=== PATIENT | female | born 2005 | race Caucasian/White ===

== ENCOUNTER 2025-08-12 07:30 | Outpatient (REF) | payer BC, SELFPAY ==
--- OUTSIDE RECORDS SUMMARY | 2025-08-12 07:33 | XMS_ITS | Encounter Summary ---
Author Organization [facility] Address [address] [place] [address] Phone Care Team Providers Care Cell Changer Name Role Phone Yani Bernabe MD Primary Care Provider [phone] Jody Draper MD Unavailable [phone] Yani Bernabe MD Unavailable [phone] Encounter Details Date Type Department Care Team (Late st Contact Info) Description 11/21/2024 Telephone [facility] Medicine [address] [place] [address] Yani Bernabe MD [address] [facility], [address] [place], [place] [id number] [email or web address] Social History Tobacco Use Types Packs/Day Years Used Date Smoking Tobacco: Never Smokeless Tobacco: Never Alcohol Use Standard Drinks/Week Comments Never 0 (1 standard drink = 0.6 oz pur e alcohol) Child or Family Care Answer Date Record ed Do you have problems with on e of the following making it difficult for you to work, study, or receive health care? No 02/21/2024 Education Answer Date Recorded Are you interested in more education? Not on sunita e 02/21/2024 Are you concerned about your learning, performance, or behavior in school? No 02/21/2024 No 02/21/2024 Yes 02/21/2024 Food Answer Date Recorded Within the past 6 months we worried whether our food would run out before we got money to buy more. Never True 02/21/2024 Within the past 6 months the food we bought just didn't last and we didn't have enough money to get more. Never True Residential Stability Answer Date Recor ded What is your housing situation today? I have jos morrow 02/21/2024 How many times have you move d in the past 12 months? Zero (I did not move) 02/21/2024 Paying for Meds Answer Date Recorded Do you have trouble paying for medicines? No 02/21/2024 Paying Utility Bills Answer Date Record ed Do you have trouble paying your heating or elect ricity bill? No 02/21/2024 Transportation Answer Date Recorded Has the lack of transportati on kept you from medical appointments or from getting medications? No 02/21/2024 Unemployment Answer Date Recorded Are you currently unemployed or working on a part-time or temporary basis, and looking for work? No 07/19/2021 Digital Access Answer Date Recorded No 02/21/2024 Yes 02/21/2024 Do you have reliable internet access at home? Ye s 02/21/2024 Do you have a device (e.g., phone, tablet, computer) with a working camera? Yes 02/21/2024 Intimate Partner Violence Answer Date R ecorded Are you denied basic needs s uch as food, clothing, or medical care? No 05/23/2024 In the past 12 months have y ou been in a relationship with a person who hurts, threatens, or tries to control you? No 05/23/2024 Are you denied basic needs s uch as food, clothing, or medical care? No 05/23/2024 In the past 12 months have y ou been in a relationship with a person who hurts, threatens, or tries to control you? No 05/23/2024 Comments No Sex and Gender Information Value Date Recorded Sex Assigned at Female 02/05/2021 9:45 PM EDT Legal Sex Female 8:42 PM EDT Gender Identity Female 02/05/2021 9:45 PM EDT Sexual Orientation Not on file documented as of this encounter Plan of Treatment Upcoming Encounters Date Type Department Care Team (Late st Contact Info) Description 09/03/2025 2:45 PM EST Office Visit [address] [place] [address] Yani Bernabe MD [address] [place] [address], [address] [place] [address] 10/22/2025 2:00 PM EST Office Visit [address] [place] [address] Yani Bernabe MD [address] [place] [address], [address] [place] [phone] documented as of this encounter Visit Diagnoses Not on filedocumented in this encounter Additional Health Concerns Assessment Noted Time PHQ-9 Depression Total Score: 4 05/23/20 2:00 PM EDT PHQ-2 Depression Total Score: 0 06/24/20 3:02 PM EDT documented as of this encounter Care Teams Cell Changer Relationship Specialty Start Date End Date Yani Bernabe MD [address] [place] [address], [address] [place] [address] PCP - General 07/27/17 Jody Draper MD [address] [place] [address] Dermatology 06/18/19 Yani Bernabe MD [address] [place] [address], [address] [place] [id number] Insurance Assigned Provider 01/13/24 documented as of this encounter Additional Source Comments The information contained in this document represents components of the legal health record. It is not the complete legal health record.[facility]
--- OUTSIDE RECORDS SUMMARY | 2025-08-12 07:33 | XMS_ITS | Clinical Summary ---
Author Organization [facility] Address [facility] [address] [place] [address] Phone Care Team Providers Care Certified Medicine Aide Name Role Phone Yani Bernabe MD Primary Care Provider [phone] Jody Draper MD Unavailable [phone] Yani Bernabe MD Unavailable [phone] Allergies Active Allergy Reactions Criticality Noted Date Comments Cat Dander 05/11/2017 Other reaction(s): Unknown House Dust Mite 05/11/2017 Other reaction(s): Unknown Mold 05/11/2017 Other reaction(s): Unknown Medications cetirizine HCl (ZYRTEC ORAL) 1 tab Oral Activ e therapeutic multivitamin tablet Take 1 tablet by mouth daily. Active fluticasone propionate (CUTIVATE) 0.005 % ointment Apply topically 2 (two) times a day. 60 g 1 4 Active albuterol 90 mcg/actuation inhalerIndication s:Exercise induced bronchospasm Inhale 2 puffs into the lungs every 4 (four) hours as needed for wheezing. 18 g 2 4 Active sertraline (ZOLOFT) 50 MG tablet TAKE 1 TABLET BY MOUTH EVERY DAY 90 tablet 1 5 Active levonorgestrel-et hinyl estradiol (SEASONALE) 0.15-0.03 mg per tabletIndications :Abnormal uterine bleeding TAKE 1 TABLET BY MOUTH EVERY DAY 91 tablet 3 5 Active Active Problems Problem Noted Date Diagnosed Date Depression with anxiety 04/07/2024 Hydrosalpinx 03/12/2021 Assessment & Plan (04/28/2021 12:54 PM EDT): No longer present on US today. May have been related to heavy bleeding. No further f/u ultrasounds needed US today report reviewed and with patient and her mother Excessive menstruation at puberty 12/13/2020 Overview (02/08/2021): Normal vWf and coags 12/2020 began on continuous OCP Assessment & Plan (04/28/2021 12:53 PM EDT): Has now been 4 months on continuous OCPs; at first taking more than one a day, but now for a while taking one daily, no missed pills. Most recently, bled starting April 11 until the present (04/28) and has been light bleeding or spotting. No pain or cramping. I discussed that prolonged spotting is common especially in first months of continuous OCP use. Discussed option of continuing daily use, or taking a 5-7 day pill holiday for a re-set . Repeat CBC today to confirm anemia has resolved. She has been taking iron all this time. Assessment & Plan (02/08/2021 2:49 PM EDT): Was seen in ED a few days ago - had 5 days of cramps (unusual) as well as continued heavy bleeding - passed what appears to me from photo a large decidua - cramps are now still present but more mild; bleeding has lightened today to a moderate flow, after taking 4 pills two days ago, 3 pills yesterday. I reviewed with her to space pills throughout day rather than all at once, and taper slowly as bleeding slows. Rachel's mother is very concerned about the menorrhagia as well as the tissue seen in toilet, and worries something is wrong (like endometriosis or fibroids). I review these diagnosis with Jaimee and how these are diagnosed and managed, briefly. I advised to continue OCP for now, and if pain or bleeding do not resolve, or if they worry still about abnormality, ok to call for pelvic US. We also discuss anemia and option of iron pills, as she is not having success with iron rich diet. Bilateral calf pain 06/20/2019 Overview (02/21/2024): Resolved with PT Exercise induced bronchospasm 06/20/2019 Allergic rhinitis 05/07/2018 Overview (11/28/2018): 2019R1.3 IMO Load Eczema 05/07/2018 Resolved Problems Problem Noted Date Diagnosed Date Resolved Date Epistaxis, recurrent 06/20/2019 024 Encounters Date Type Department Care Team Description 06/05/2025 1:48 PM EDT - 06/05/2025 11:59 PM EDT Hospital Encounter [facility] [address] [place] [address] Yani Bernabe MD Discharge Disposition: Home or Self Care 05/26/2025 4:45 PM EDT Office Visit [address] [place] [address] Yani Bernabe MD Routine screening for STI (sexually transmitted infection) (Primary Dx); Need for hepatitis B screening test; Need for hepatitis C screening test 05/14/[address] [place] [address] Beronica Cedeno LPN Exposure to STD from Last 3 Months Immunizations Immunization Administration Dates Next Due COVID-19 (Pre-07/31) Pfizer Vaccine, mRNA, PF 02/20/2021 DTaP 12/28/2009, 7,04/14/2006,02/06 DTaP-Hep B-IPV 06/02/2006 HPV,quadrivalent 05/11/2017 HPV9 05/08/2018 Hepatitis A, ped/adol, 2 dose 06/23/2020, 019 Hepatitis B, unspecified formulation 02/06/2006, 2005 Hib, unspecified formulation 03/20/2007, 06/02/2006,04/14/2006,02/06 INFLUENZA, SPLIT VIRUS, TRIV ALENT W/ PRESERVATIVE IM 08/11/2014,07/26/2013,07/18/2012,09/23 Influenza Quadrivalent Prese rvative Free IM 07/12/2023,07/18/2022,07/19/2021,08/13,08/06/2017,09/19/2016 Influenza Quadrivalent w/ Pr eservative IM 07/27/2020,09/19/2016,09/17/2015 MMR 01/31/2011,12/18/2006 Meningococcal MCV4O 09/13/2022 Meningococcal MCV4P 05/07/2018 Pneumococcal, Unspecified Formulation 03/20/2007 Polio, Unspecified Formulation 0,06/02/2006,04/14/2006,02/06 Tdap 05/11/2017 Varicella 01/31/2011,12/18/2006 Family History Medical History Relation Comments No Known Problems Father No Known Problems Mother Relation Status Comments Father Alive Mother Alive Social History Tobacco Use Types Packs/Day Years [...] your housing situation today? I have jos sing 02/21/2024 How many times have you move [...] PM EDT Sexual Orientation Not on file Last Filed Vital Signs Vital Sign Reading Time Taken Comments Blood Pressure 109/75 05/26/2025 4:33 PM EDT Pulse 113 05/26/2025 4:33 PM EDT Temperature 36.7 C (98.1 F) 05/26/2025 4:33 PM EDT Respiratory Rate 18 08/15/2023 12:5 4 AM EST Oxygen Saturation 99% 05/26/2025 4:33 PM EDT Inhaled Oxygen Concentration - - Weight 107.3 kg (236 lb 9.6 oz) 05/26/2025 4:33 PM EDT Height 163.5 cm (5' 4.37 ) 05/26/2025 4:33 PM ED T Body Mass Index 40.15 05/26/2025 4:33 PM EDT Plan of Treatment Upcoming Encounters Date Type Department Care Team (Late st Contact Info) Description 09/03/2025 2:45 PM EST Office Visit [address] [place] [address] Yani Bernabe MD [address] [place] [address], [address] [place] [address] 10/22/2025 2:00 PM EST Office Visit [address] [place] [address] Yani Bernabe MD [address] [place] [address], [address] [place] [address] Health Maintenance Due Date Last Done Comments SMOKING Hx and SMOKELESS TOBACCO SCREENING 2018 MENINGOCOCCAL VACCINES (B) (1 of 2 - Standard) 2021 INFLUENZA VACCINE (#1) 2025 , 07/18/2022, 07/19/2021, Additional history exists COVID-19 VACCINE ( season) 2025 08/28/2023, 10/21/2021, 03/13/2021, Additional history exists BMI ASSESSMENT 05/26/2026 05/26/2025 DEPRESSION SCREENING 05/26/2026 05/26/2025, 05/26/20 DEVELOPMENTAL/BEHAVIORAL SCREENING (PHQ, PSC, or SWYC) 05/26/2026 05/26/2025, 05/26/2025 COMBINED DTaP,Tdap,Td (7 - Td or Tdap) 05/11/2027 05/11/2017, 12/28/2009, 03/20/2007, Additional history exists HEPATITIS B VACCINES Completed 06/02/2006, 02/06/2006, 2005 HIB VACCINES Completed 03/20/2007, 05/10, 04/14/2006, Additional history exists PNEUMOCOCCAL VACCINES (0-49 years) Aged Out 03/20/2007 No longer eligible based on patient's age to complete this topic MMR VACCINES Completed 01/31/2011, 12/18/2006 VARICELLA VACCINES Completed 01/31/2011, 12/18/2006 HPV VACCINES Completed 05/08/2018, 05/11/2017 HEPATITIS A VACCINES Completed 06/23/2020, 06/18/20 MENINGOCOCCAL VACCINES (ACWY) Completed 09/13/2022, 05/07/2018 ADOLESCENT UNIVERSAL LIPID SCREENING Completed 05/01/2023, 07/28/2018, 06/26/2018 HEPATITIS C SCREENING Completed 06/05/2025 HIV ONE-TIME SCREENING (18-65 YEARS) Completed 06/05/2025 Medical Devices Not on file Procedures Procedure Name Priority Date/Time Associated Diagnosis Comments SYPHILIS ANTIBODY SCREEN ASSAY Routine 06/05/2025 1:48 PM EDT Routine screening for STI (sexually transmitted infection) HEPATITIS B SURFACE ANTIGEN Routine 06/05/2025 1:48 PM EDT Need for hepatitis B screening test HEPATITIS C ANTIBODY, QUALITATIVE Routine 06/05/2025 1:48 PM EDT Need for hepatitis C screening test HIV-1/2 ANTIGEN/ANTIBODY Routine 06/05/2025 1:48 PM EDT Routine screening for STI (sexually transmitted infection) CHLAMYDIA TRACHOMATIS AND NEISSERIA GONORRHOEAE NUCLEIC ACID DETECTION Routine 05/26/2025 5:00 PM EDT Routine screening for STI (sexually transmitted infection) LIPID PANEL Routine 05/01/2023 11:45 AM EDT Screening for lipoid disorders from Last 3 Months or Most Recently Relevant to Health Maintenance Results * HIV-1/2 antigen/antibody (06/05/2025 1:48 PM EDT) HIV-1/2 Antigen/Antibo dy NON-REACTI VE NON-REACTI VE [facility] Blood 06/05/2025 1:48 PM EDT 06/05/2025 1:52 PM EDT us Yani Bernabe MD LAB BLOOD BKR ORDERABLES F inal Result [address] [address] * Hepatitis C antibody, qualitative (06/05/2025 1:48 PM EDT) HCV NON-REACTIV E NON-REACTI VE [facility] Blood 06/05/2025 1:48 PM EDT 06/05/2025 1:52 PM EDT us Yani Bernabe MD LAB BLOOD BKR ORDERABLES F inal Result Performing Organization Address City/[facility]/ZIP Co de Phone Number [address] [address] * Syphilis antibody screen (06/05/2025 1:48 PM EDT) RPR NON-REACTIV E NON-REACTI VE [facility] Blood 06/05/2025 1:48 PM EDT 06/05/2025 1:52 PM EDT us Yani Bernabe MD LAB BLOOD BKR ORDERABLES F inal Result [address] [address] * Hepatitis B surface antigen (06/05/2025 1:48 PM EDT) HBV SURFACE ANTIGEN NON-REACTI VE NON-REACTI VE [facility] Blood 06/05/2025 1:48 PM EDT 06/05/2025 1:52 PM EDT us Yani Bernabe MD LAB BLOOD BKR ORDERABLES F inal Result [address] [address] * Chlamydia Trachomatis and Neisseria Gonorrhoeae Nucleic Acid Detection (05/26/2025 5:00 PM EDT) CHLAMYDIA TRACHOMATIS Not Detected Not Detected [facility] NEISERIA GONORRHOEAE Not Detected Not Detected [facility] SPECIMEN TYPE URINE [facility] Urine (Urine) 05/26/2025 5:0 0 PM EDT 05/26/2025 5:55 PM EDT us Yani Bernabe MD LAB GENERAL ORDERABLES Fin al Result [address] [address] * (ABNORMAL) Lipid panel (05/01/2023 11:45 AM EDT) Pathologist [facility] HDL 48 mg/dL [facility] Comment: Interpretation <40 mg/dL: Low HDL cholesterol (major risk factor for CHD) Greater than or equal to 60 mg/dL: High HDL cholesterol ( negative risk factor for CHD) HDL - cholesterol is affected by a number of factors, e.g. smoking, excerise, hormones, sex and age. CHOLESTEROL 184(H) 0 - 169 mg/dL [facility] Comment: Pediatric Reference Ranges for 2 to 18 years Acceptable: Less than 170 mg/dL Borderline: 170 - 199 mg/dL High: Greater than or equal to 200 mg/dL TRIGLYCERIDES 139 30 - 160 mg/dL [facility] LDL 108 50 - 129 mg/dL [facility] Comment: LDL levels in terms of risk for coronary heart disease: <100 mg/dL: Optimal 100-129 mg/dL: Near or above optimal 130-159 mg/dL: Borderline high 160-189 mg/dL: High >190 mg/dL: Very High CARDIAC RISK RATIO 3.8 3.3 - 4.4 [facility] Blood 05/01/2023 11:4 5 AM EDT 05/01/2023 8:57 PM EDT us Yani Bernabe MD LAB BLOOD BKR ORDERABLES F inal Result [address] [address] from Last 3 Months or Most Recently Relevant to Health Maintenance Insurance [facility] [address] [address] [facility] [address] [address] [facility] [place] [address] [place] [address] [place] [address] [facility] [place] [address] [address] [place] [address] [place] [address] [place] [address] [place] [address] [place] [address] Care Teams Certified Medicine Aide Relationship Specialty Start Date End Date Yani Bernabe MD [address] [place] [address], [address] [place] [address] [email or web address] PCP - General 07/27/17 Jody Draper MD [address] [place] [address] Dermatology 06/18/19 Yani Bernabe MD [address] [place] [address], [address] [place] [address] [email or web address] Insurance Assigned Provider 01/13/24 Additional Source Comments The information contained in this document represents components of the legal health record. It is not the complete legal health record.[facility]
--- OUTSIDE RECORDS SUMMARY | 2025-08-12 07:33 | XMS_ITS | Encounter Summary ---
Author Organization [facility] Address [address] [place] [address] Phone Care Team Providers Care Senior Housekeeper Name Role Phone Yani Bernabe MD Primary Care Provider [phone] Jody Draper MD Unavailable [phone] Yani Bernabe MD Unavailable Reason for Visit * Reason Onset Date Comments Referral 04/23/2024 PT PT/plan of care 04/23/2024 Encounter Details Date Type Department Care Team (Late st Contact Info) Description 04/23/2024 Telephone [facility] [address] [place] [address] Yani Bernabe MD [address] [facility], [address] [place], [place] [id number] [email or web address] Referral (PT); PT/plan of care Social History Tobacco Use Types Packs/Day Years [...] computer) with a working camera? Yes 02/21/2024 Comments No Sex and Gender Information Value Date Recorded Sex Assigned at Female 02/05/2021 9:45 PM EDT Legal Sex Female 8:42 PM EDT Gender Identity Female 02/05/2021 9:45 PM EDT Sexual Orientation Not on file documented as of this encounter Progress Notes * Yani Bernabe MD - 05/07/2024 11:52 AM EDT I already signed this * Genevieve Lomeli LPN - 05/07/2024 10:07 AM EDT Received request for insurance referral for [facility] physical therapy. * Beronica Cedeno LPN - 05/06/2024 12:10 PM EDT Signed [facility] plan of care paperwork faxed to [phone] with confirmation of receipt. Sent for scanning to the chart. * Beronica Cedeno LPN - 05/03/2024 10:43 AM EDT Plan of care paperwork/PT placed on providers desk for review and signature. * Yani Bernabe MD - 04/28/2024 2:38 PM EDT Is this a request to continue PT from previous request or is this a new request? In context of recent fracture - has ortho recommended PT? * Bette Farrell RN - 04/23/2024 2:14 PM EDT I see that patient has been seen for fifth metatarsal fracture recently, also described improvementin calf pain following PT in [place] 02/21/24. Referral pended if OK * Betty Rosado - 04/23/2024 12:05 PM EDT Referral Request 1. Name of the office where the patient has been seen/requests to be seen: [facility] [address] 2. Reason for referral/specialist appointment and the diagnosis code: Feet and knees hurt when walking for an extended period of time 2A. Have you seen this provider before for this same problem? YES/NO: no 2B. If this is a new problem, is your PCP aware of your symptoms? YES/NO: no 3. Date of appointment(s):TBD 4. Name of specialist provider: TBD 5. NPI number to enter for referral authorization (enter n/a if not available): N/A 6. Number of visits requested for referral: TBD 7. Fax number of specialist office to send referral authorization: [facility] CSS Agent (Please do not reply to this user, as this inbox is not monitored.) Thank you documented in this encounter Plan of Treatment Upcoming Encounters Date Type Department Care Team (Late st Contact Info) Description 09/03/2025 2:45 PM EST Office Visit [address] [address] Yani Bernabe MD [address] [place] [address], [address] [place] [address] 10/22/2025 2:00 PM EST Office Visit [address] [address] Yani Bernabe MD [address] [place] [address], [address] [address] documented as of this encounter Visit Diagnoses Not on filedocumented in this encounter Additional Health Concerns Assessment Noted Time PHQ-9 Depression Total Score: 14 022 4:37 PM EDT PHQ-2 Depression Total Score: 2 02/21/20 24 9:31 AM EDT documented as of this encounter Care Teams Senior Housekeeper Relationship Specialty Start Date End Date Yani Bernabe MD [address] [place] [address], [address] [place] [address] [email or web address] PCP - General 07/27/17 Jody Draper MD [address] [place] [address] Dermatology 06/18/19 Yani Bernabe MD 22 [facility], [address] [place] [address] [email or web address] Insurance Assigned Provider 01/13/24 documented as of this encounter Additional Source Comments The information contained in this document represents components of the legal health record. It is not the complete legal health record.[facility]
== END 2025-08-12 07:31 | disposition home or self-care (01) ==
LOC: HO.UMASIMG 07:30
PROVIDERS: Visit Provider Nurse Practitioner
DX: Z13.89 Encounter for screening for other disorder (principal)